=== PATIENT | female | born 1995 | race African-American/Black ===

== ENCOUNTER 2017-02-15 16:09 | Emergency (ER) | payer SELFPAY ==
[~2017-02-15] VITALS: Ht 157.5 cm; Wt 78.5 kg
--- NOTE | 2017-02-15 17:10 | PHYS DOC ---
Past Medical History Past Medical History: No Pertinent History Past Surgical History: No Surgical History Alcohol Use: None Drug Use: None Adult General Chief Complaint Chief Complaint: VOMITING IN HPI HPI Patient is a 22 year old female who presents with EAB 1, several episodes of vomiting followed by a brief syncopal episode just prior to arrival while she was at work. Denies any chest pain shortness of breath or leg swelling. Thinks she might be last menstrual period first week of December. Denies any pelvic pain or cramping or vaginal bleeding. Currently smiling and laughing without any physical complaints. Review of Systems Review of Systems Constitutional: Denies fever or chills [] Eyes: Denies change in visual acuity, redness, or eye pain [] HENT: Denies nasal congestion or sore throat [] Respiratory: Denies cough or shortness of breath [] Cardiovascular: No additional information not addressed in HPI [] GI: Denies abdominal pain, nausea, vomiting, bloody stools or diarrhea [] : Denies dysuria or hematuria [] Musculoskeletal: Denies back pain or joint pain [] Integument: Denies rash or skin lesions [] Neurologic: Denies headache, focal weakness or sensory changes [] Endocrine: Denies polyuria or polydipsia [] All other systems were reviewed and found to be within normal limits, except as documented in this note. Current Medications Current Medications Current Medications Medications (Trade) Dose Ordered Sig/Ciarra Start Time Stop Time Status Last Admin Dose Admin Ondansetron HCl (Zofran) 4 mg 1X ONCE 02/15/17 17:15 02/15/17 17:16 DC 02/15/17 17:29 4 MG Sodium Chloride 1,000 ml @ 1,000 mls/hr 1X ONCE 02/15/17 17:15 02/15/17 18:14 DC 02/15/17 17:28 1,000 MLS/HR Allergies Allergies Allergies Coded Allergies Type Severity Reaction Last Updated Verified No Known Drug Allergies 02/15/17 No Physical Exam Physical Exam Constitutional: Well developed, well nourished, no acute distress, non-toxic appearance. [] HENT: Normocephalic, atraumatic, bilateral external ears normal, oropharynx moist, no oral exudates, nose normal. [] Eyes: PERRLA, EOMI, conjunctiva normal, no discharge. [] Neck: Normal range of motion, no tenderness, supple, no stridor. [] Cardiovascular:Heart rate regular rhythm, no murmur [] Lungs & Thorax: Bilateral breath sounds clear to auscultation [] Abdomen: Bowel sounds normal, soft, no tenderness, no masses, no pulsatile masses. Completely benign [] Skin: Warm, dry, no erythema, no rash. [] Back: No tenderness, no CVA tenderness. [] Extremities: No tenderness, no cyanosis, no clubbing, ROM intact, no edema. [] Neurologic: Alert and oriented X 3, normal motor function, normal sensory function, no focal deficits noted. [] Psychologic: Affect normal, judgement normal, mood normal. [] Current Patient Data Vital Signs Vital Signs Date Time Temp Pulse Resp B/P (MAP) Pulse Ox O2 Delivery O2 Flow Rate FiO2 02/15/17 18:06 117/61 (79) 97 Room Air 02/15/17 17:30 104 02/15/17 16:10 99.0 18 99.0 Lab Values Laboratory Tests Test 02/15/17 16:30 02/15/17 17:14 02/15/17 17:16 Sodium Level 135 mmol/L (136-145) L Potassium Level 3.7 mmol/L (3.5-5.1) Chloride Level 102 mmol/L (98-107) Carbon Dioxide Level 25 mmol/L (21-32) Anion Gap 8 (6-14) Blood Urea Nitrogen 14 mg/dL (7-20) Creatinine 0.7 mg/dL (0.6-1.0) Estimated GFR (Cockcroft-Gault) 129.1 Glucose Level 84 mg/dL (70-99) Calcium Level 9.1 mg/dL (8.5-10.1) POC Urine HCG, Qualitative Hcg negative (Negative) Urine Collection Type Unknown Urine Color Nuris Urine Clarity Cloudy Urine pH 6.0 Urine Specific [place] >=1.030 Urine Protein 30 mg/dL (NEG-TRACE) Urine Glucose (UA) Negative mg/dL (NEG) Urine Ketones (Stick) Negative mg/dL (NEG) Urine Blood Moderate (NEG) Urine Nitrite Negative (NEG) Urine Bilirubin Negative (NEG) Urine Urobilinogen Dipstick 0.2 mg/dL (0.2 mg/dL) Urine Leukocyte Esterase Large (NEG) Urine RBC Occ /HPF (0-2) Urine WBC 11-20 /HPF (0-4) Urine Squamous Epithelial Cells Many /LPF Urine Bacteria Moderate /HPF (0-FEW) Urine Mucus Slight /LPF Laboratory Tests 02/15/17 16:30 EKG EKG Normal sinus rhythm rate of 93 no STEMI QTC 450 my interpretation[] Radiology/Procedures Radiology/Procedures [] Course & Med Decision Making Course & Med Decision Making Pertinent Labs and Imaging studies reviewed. (See chart for details) Plan to confirm positive test check UA chemistries give IV fluids EKG and nausea medication. Urine test was negative. EKG was unremarkable. Given IV fluids symptomatic treatment and plan to dismiss home[ Reexamination patient felt improved and wanted to go home. Notified of lab findings including not being .] Dragon Disclaimer Dragon Disclaimer This electronic medical record was generated, in whole or in part, using a voice recognition dictation system. Departure Departure Impression: Primary Impression: Vomiting Additional Impressions: Dehydration Syncope Disposition: HOME, SELF-CARE Condition: IMPROVED Patient Instructions: Nausea and Vomiting, [id number]-Fihe Scripts Ondansetron (ZOFRAN ODT) 4 Mg Tab.rapdis 4 MG PO TID PRN Y for NAUSEA/VOMITING, #10 TAB Prov: KERMIT MCCURDY MD 02/15/17 Problem Qualifiers KERMIT MCCURDY MD Feb 15, 2017 17:10
[2017-02-15] MEDS ORDERED: IV NORMAL SALINE 1000ML BAG 1,000 ML IV ONE (17:15)
[2017-02-15] MEDS ORDERED: ONDANSETRON PF 4 MG/2 ML VIAL. IV ONE (17:15)
[2017-02-15 17:23] LABS: BILIRUBIN,URINE NEGATIVE (NEG); GLUCOSE,URINE NEGATIVE (NEG); NITRITE,URINE NEGATIVE (NEG); PROTEIN,URINE 30 mg/dL (NEG-TRACE); UROBILINOGEN,URINE 0.2 mg/dL (0.2 mg/dL)
[2017-02-15 17:32] LABS: BACTERIA,URINE MODERATE /HPF (0-FEW); RBC,URINE OCC /HPF (0-2); SQUAMOUS EPITHELIAL CELL,UR MANY /LPF
[2017-02-15 18:04] LABS: CALCIUM 9.1 mg/dL (8.5-10.1); CREATININE 0.7 mg/dL (0.6-1.0); GFR 129.1; POTASSIUM 3.7 mmol/L (3.5-5.1)
[2017-02-15 18:06] VITALS: BP 117/61
[2017-02-15] MEDS ORDERED: ONDA4TAB10 PO (18:24)
--- NOTE | 2017-02-16 06:58 | EKG ---
[facility] [address] [place] [id number] Test Date: 2017-02-15 Test Time: 16:13:06 Pat Name: BLAINE GIL Department: Room: Gender: F Transformer Maker: : 1995 Requested By: KERMIT MCCURDY Order Number: [id number] Reading MD: James Dean MD Measurements Intervals [place] Rate: 93 P: 37 RI: 132 QRS: 12 QRSD: 80 T: 24 QT: 360 QTc: 450 Interpretive Statements SINUS RHYTHM Electronically Signed On 02-16-2017 8:31:08 QUILTING MACHINE HELPER by James Dean MD
== END 2017-02-15 18:35 | disposition home or self-care (01) ==
LOC: ER 16:09
DX: O21.9 Vomiting of pregnancy, unspecified (principal); O99.619 Diseases of the digestive system complicating pregnancy, unspecified trimester; E86.0 Dehydration; R55 Syncope and collapse; K92.89 Other specified diseases of the digestive system; Z3A.00 Weeks of gestation of pregnancy not specified
CPT/HCPCS: 36415; 80048; 81001; 81025; 87086; 93005; 96361; 96374; 99285; J2405; J7030